=== PATIENT | male | born 1980 | race Hispanic/Latino ===

== ENCOUNTER 2019-02-10 10:13 | Day surgery (SDC) | payer MEDICARE ==
[~2019-02-10] VITALS: Ht 144.8 cm; Wt 47.8 kg
[2019-02-10 12:00] VITALS: BP 147/95
[2019-02-10] MEDS ORDERED: HYDR-4153 PO (12:42)
[2019-02-10] MEDS ORDERED: FOLI1TAB85 PO (12:53)
[2019-02-10] MEDS ORDERED: NIFE30TA98 PO (12:53)
[2019-02-10] MEDS ORDERED: CARV25TA PO (12:53)
[2019-02-10] MEDS ORDERED: CALC667C10 PO (12:53)
[2019-02-10] MEDS ORDERED: FAMO40TA7 PO (12:53)
[2019-02-10] MEDS ORDERED: CETI-101 PO (12:53)
[2019-02-10] MEDS ORDERED: PANT40TA25 PO (12:53)
[2019-02-10] MEDS ORDERED: PROPOFOL 10 MG/ML 20ML VIAL IV ONE (13:50)
[2019-02-10 14:07] VITALS: BP 147/83
[2019-02-10 14:12] VITALS: BP 162/86
[2019-02-10 14:16] VITALS: BP 170/91
[2019-02-10 14:22] VITALS: BP 164/93
== END 2019-02-10 14:38 | disposition home or self-care (01) ==
LOC: ENDO 10:13
PROVIDERS: ATTEND Internal Medicine
DX: K29.50 Unspecified chronic gastritis without bleeding (principal); K22.70 Barrett's esophagus without dysplasia; K21.9 Gastro-esophageal reflux disease without esophagitis; K44.9 Diaphragmatic hernia without obstruction or gangrene; K31.89 Other diseases of stomach and duodenum; K59.00 Constipation, unspecified; K76.0 Fatty (change of) liver, not elsewhere classified; R04.2 Hemoptysis; E78.5 Hyperlipidemia, unspecified; I12.0 Hypertensive chronic kidney disease with stage 5 chronic kidney disease or end stage renal disease; N18.6 End stage renal disease; Z98.890 Other specified postprocedural states
CPT/HCPCS: 36415; 43239; 84132; 88305; 88342; A4606; J2704